=== PATIENT | male | born 1930 | race Caucasian/White ===

== ENCOUNTER 2017-06-09 01:22 | Emergency (ER) | payer MEDICARE ==
[~2017-06-09] VITALS: Ht 185.4 cm; Wt 95.3 kg
[2017-06-09 01:22] VITALS: BP_SYST 143
[2017-06-09] MEDS ORDERED: ONDANSETRON 4 MG ODT TAB PO ONE (02:30)
[2017-06-09 04:06] VITALS: BP_SYST 139
== END 2017-06-09 06:00 | disposition home or self-care (01) ==
LOC: SED 01:22
DX: S13.4XXA Sprain of ligaments of cervical spine, initial encounter (principal); F03.90 Unspecified dementia, unspecified severity, without behavioral disturbance, psychotic disturbance, mood disturbance, and anxiety; E78.5 Hyperlipidemia, unspecified; K21.9 Gastro-esophageal reflux disease without esophagitis; I12.9 Hypertensive chronic kidney disease with stage 1 through stage 4 chronic kidney disease, or unspecified chronic kidney disease; E11.22 Type 2 diabetes mellitus with diabetic chronic kidney disease; N18.9 Chronic kidney disease, unspecified; F32.9 Major depressive disorder, single episode, unspecified; Z90.49 Acquired absence of other specified parts of digestive tract; W01.0XXA Fall on same level from slipping, tripping and stumbling without subsequent striking against object, initial encounter; Y93.89 Activity, other specified; Y92.89 Other specified places as the place of occurrence of the external cause; Y99.8 Other external cause status
CPT/HCPCS: 70450; 72125; 99284; Q0162